=== PATIENT | female | born 1985 | race African-American/Black ===

== ENCOUNTER 2022-05-18 20:03 | Emergency (ER) | payer OTHER ==
[~2022-05-18] VITALS: Ht 160 cm; Wt 92.1 kg
--- NOTE | 2022-05-18 20:25 | NUR ---
Dr. Crawford at bedside. MSE in progress.
[2022-05-18] MEDS ORDERED: KETOROLAC TROMETHAMINE 15 MG INJ IVP ONE (20:30)
[2022-05-18] MEDS ORDERED: HYDROMORPHONE 1 MG/1 ML DISP.SYRIN IV ONE (20:30)
[2022-05-18] MEDS ORDERED: ASPIRIN 81 MG TAB.CHEW PO ONE (20:30)
[2022-05-18] MEDS ORDERED: ASPIRIN 81 MG TAB.CHEW ONE (20:37)
[2022-05-18] MEDS ORDERED: PROCHLORPERAZINE EDISYLATE 10 MG/2 ML VIAL ONE (20:38)
[2022-05-18] MEDS ORDERED: KETOROLAC TROMETHAMINE 30 MG INJ ONE (20:38)
[2022-05-18] MEDS ORDERED: HYDROMORPHONE 1 MG/1 ML DISP.SYRIN ONE (20:39)
[2022-05-18] MEDS ORDERED: PROCHLORPERAZINE EDISYLATE 10 MG/2 ML VIAL IV ONE (20:45)
[2022-05-18 21:00] LABS: HEMATOCRIT 38.6 % (31.2-41.9); MEAN CORPUSCULAR HEMOGLOBIN 29.6 uug (24.7-32.8); MEAN CORPUSCULAR VOLUME 87.7 fL (75.5-95.3); PLATELET COUNT (AUTO) 273 K/uL (179-408)
--- NOTE | 2022-05-18 21:00 | NUR ---
Brother and sister at bedside.
[2022-05-18 21:28] LABS: CARBON DIOXIDE 27 mmol/L (21-32); CHLORIDE 102 mmol/L (98-107); CREATININE 0.8 mg/dL (0.6-1.3); GLUCOSE 122 mg/dL (74-106); POTASSIUM 3.2 mmol/L (3.5-5.1); UREA NITROGEN, BLOOD 11 mg/dL (7-18)
[2022-05-18] MEDS ORDERED: POTASSIUM BICARBONATE/CIT AC 25 MEQ TABLET.EFF PO ONE (22:15)
[2022-05-18] MEDS ORDERED: POTASSIUM BICARBONATE/CIT AC 25 MEQ TABLET.EFF ONE (22:20)
--- NOTE | 2022-05-18 22:35 | NUR ---
Urine sent to the lab.
[2022-05-18 22:47] LABS: *URINE HCG, QUAL NEGATIVE (NEGATIVE)
[2022-05-18] MEDS ORDERED: IOHEXOL 350 100 ML INFUS..BTL ONE (22:59)
[2022-05-18] MEDS ORDERED: SWABABLE VALVE TRANSFER SET EA MC ONE (22:59)
[2022-05-18] MEDS ORDERED: IV NORMAL SALINE 250 ML IV ONE (22:59)
--- NOTE | 2022-05-18 23:05 | NUR ---
Patient going down for CTA.
--- NOTE | 2022-05-18 23:23 | NUR ---
Patient back from CT.
--- NOTE | 2022-05-19 00:29 | NUR ---
Dr. Crawford at bedside.
[2022-05-19] MEDS ORDERED: OXYC-128 PO (00:37)
--- NOTE | 2022-05-19 00:55 | NUR ---
Patient discharged to home in stable condition with sister. A/O x4. NAD noted. Ambulatory with a steady gait. All belongings with patient. Written and verbal after care instructions given. Patient verbalizes understanding of instructions. Stressed follow up or return to ER for worsening s/s.
[2022-05-19 01:11] VITALS: BP 106/73
== END 2022-05-19 00:55 | disposition home or self-care (01) ==
LOC: ER 20:08
DX: M94.0 Chondrocostal junction syndrome [Tietze] (principal); R11.2 Nausea with vomiting, unspecified; R79.1 Abnormal coagulation profile
CPT/HCPCS: 99285; 96374; 71275; 71045; 96375; 80048; 84703; 85025; 85379; 85730; 84484 ×2; 36415; 93005; J1885; Q9967; J0780; J1170; A4663